=== PATIENT | female | born 1975 | race African-American/Black ===

== ENCOUNTER 2017-10-19 02:23 | Emergency (ER) | payer SELFPAY ==
[~2017-10-19] VITALS: Ht 165.1 cm; Wt 72.0 kg
[2017-10-19] MEDS ORDERED: AMIODARONE HCL 900 MG in DEXT 5% WATER 500 ML IV STA ×2 (02:39→03:10)
[2017-10-19] MEDS ORDERED: INSULIN LISPRO 100 UNITS/ML SUBCUT ONE (03:01)
[2017-10-19] MEDS ORDERED: EPINEPHRINE 0.1MG/ML (1:10,000) 10ML SYR ONE ×2 (03:02→03:33)
[2017-10-19] MEDS ORDERED: CALCIUM CHLORIDE 1GM/10ML SYR IV ONE (03:11)
[2017-10-19] MEDS ORDERED: ALBUTEROL (0.083%) 2.5MG/3ML NEB ONE ×2 (03:12→03:13)
[2017-10-19] MEDS ORDERED: IPRATROPIUM BROMIDE (0.02%) 0.5MG/2.5ML NEB ONE (03:13)
[2017-10-19] MEDS ORDERED: PHENYLEPHRINE 20 MG in DEXT 5% WATER 248 ML IV PRN ×4 (03:15)
[2017-10-19 03:46] LABS: BG CARBOXYHEMOGLOBIN 15.4 % (0.5-1.5); BG DEOXYHEMOGLOBIN 1.9 % (0.0-5.0); BG FRACTION INSPIRED OXYGEN 100; BG METHEMOGLOBIN 0.3 % (0.0-1.5); BG OXYGEN SATURATION 97.7 % (92.0-98.5); BG OXYHEMOGLOBIN 82.4 % (94.0-97.0); BG PCO2 44.8 mmHg (35.0-45.0); BG PH < 6.680 (7.350-7.450); BG PO2 295.6 mmHg (75.0-100.0); BG SAMPLE SITE RIGHT RADIAL; BG TIDAL VOLUME(mL) 500 mL; BG TOTAL HEMOGLOBIN 11.1 g/dL (12.0-18.0); BG VENT MODE VENT - A/C; BG VENT RATE 20 set
[2017-10-19] MEDS ORDERED: EPINEPHRINE 1 MG in SODIUM CHLORIDE 0.9% 249 ML IV STA (04:04)
[2017-10-19 05:02] LABS: HEMATOCRIT. 35.3 % (36.0-48.0); HEMOGLOBIN. 10.2 g/dL (12.0-16.0); MEAN CORPUSCULAR HEMOGLOBIN 26.2 pg (28.0-32.0); MEAN CORPUSCULAR VOLUME 90.6 fL (81.0-99.0); MEAN PLATELET VOLUME 7.6 fl (7.4-10.4); PLATELET 231 x1000/uL (130-400); RED CELL DISTRIBUTION WIDTH 15.5 % (11.6-14.6)
[2017-10-19 05:14] LABS: CHLORIDE 109 mEq/L (98-107)
[2017-10-19] MEDS ORDERED: SODIUM CHLORIDE 0.9% 1,000 ML IV ONE (05:15)
[2017-10-19] MEDS ORDERED: SODIUM CHLORIDE 0.9% 1000ML BAG (SEPSIS BOLUS) IV NR (05:15)
[2017-10-19 05:19] LABS: HCG SCREEN NEGATIVE
[2017-10-19 05:20] LABS: CREATINE KINASE 647 IU/L (26-192)
[2017-10-19 05:29] LABS: INR 1.6; PROTHROMBIN TIME 16.5 sec (9.4-11.6)
[2017-10-19 05:36] LABS: BG BASE EXCESS -23.9 mmol/L (-2.0-2.0); BG CARBOXYHEMOGLOBIN 4.8 % (0.5-1.5); BG DEOXYHEMOGLOBIN 8.5 % (0.0-5.0); BG FRACTION INSPIRED OXYGEN 100; BG METHEMOGLOBIN 0.3 % (0.0-1.5); BG OXYHEMOGLOBIN 86.4 % (94.0-97.0); BG PCO2 49.8 mmHg (35.0-45.0); BG PH 6.874 (7.350-7.450); BG PO2 96.7 mmHg (75.0-100.0); BG SAMPLE SITE LEFT RADIAL; BG TIDAL VOLUME(mL) 500 mL; BG TOTAL HEMOGLOBIN 11.6 g/dL (12.0-18.0); BG VENT MODE VENT - A/C; BG VENT RATE 20 set
[2017-10-19 05:45] VITALS: BP 77/38
[2017-10-19 05:45] LABS: PLATELET ESTIMATE NORMAL
[2017-10-19] MEDS ORDERED: PHENYLEPHRINE 20 MG in SODIUM CHLORIDE 0.9% 250 ML IV PRN (05:45)
[2017-10-19] MEDS ORDERED: SODIUM CHLORIDE 0.9% IV PRN (05:45)
[2017-10-19] MEDS ORDERED: TETANUS, DIPHTHERIA, PERTUSSIS VAC/PF 0.5ML (>7YR OLD) IM ONE (05:45)
[2017-10-19] MEDS ORDERED: PHENYLEPHRINE 40 MG in SODIUM CHLORIDE 0.9% 496 ML IV PRN (05:45)
[2017-10-19] MEDS ORDERED: CEFAZOLIN 1000MG PREMIX 50 ML IV ONE (05:45)
[2017-10-19] MEDS ORDERED: PHENYLEPHRINE IV PRN (05:45)
[2017-10-19 06:05] LABS: CHLORIDE 109 mEq/L (98-107)
[2017-10-19 06:08] LABS: BETA HYDROXYBUTYRATE 0.2 mMol/L (0.0-0.3)
[2017-10-19 06:12] LABS: PARTIAL THROMBOPLASTIN TIME > 200.0 sec (23.4-31.0)
== END 2017-10-19 06:20 | disposition short-term general hospital (02) ==
LOC: ER 02:23
DX: I46.9 Cardiac arrest, cause unspecified (principal); T20.24XA Burn of second degree of nose (septum), initial encounter; T21.24XA Burn of second degree of lower back, initial encounter; T21.21XA Burn of second degree of chest wall, initial encounter; T26.12XA Burn of cornea and conjunctival sac, left eye, initial encounter; T26.11XA Burn of cornea and conjunctival sac, right eye, initial encounter; T28.0XXA Burn of mouth and pharynx, initial encounter; T31.0 Burns involving less than 10% of body surface; X02.1XXA Exposure to smoke in controlled fire in building or structure, initial encounter; Y93.89 Activity, other specified; Y92.89 Other specified places as the place of occurrence of the external cause; Y99.8 Other external cause status; Z79.4 Long term (current) use of insulin
CPT/HCPCS: 36415; 36556; 36600; 71045; 72170; 80053; 82010; 82375; 82550; 82805; 83690; 84703; 85025; 85610; 85730; 86850; 86900; 86901; 92950; 93005; 99291; 99292; J0282; J1815; J2370; J3490; J7030; J7040; J7611; J7050; J7060